=== PATIENT | male | born 1930 | race Caucasian/White ===

== ENCOUNTER 2016-06-28 04:14 | Inpatient (IN) | payer OTHER ==
--- NOTE | ~2016-06-28 | IDS ---
Interim Discharge Summary [facility] [address] [facility] [address] NAME: ALEXANDER LARA : 29 STATUS : ADM IN PAT#: [id number] AGE: 85 ADM/REG DATE : 06/28/16 MR#: [id number] REPORT SERV DATE: 06/30/16 DICTATED BY: AMARILIS MENDOSA DATE: 06/29/16 REPORT STATUS : Draft TRANSCRIBED BY: MODL DATE: 06/29/16 ADMISSION DATE: 06/28/2016 DISCHARGE DATE: The patient arrived to wi at 4:30 p.m. from being in the ED since 2 a.m. if not earlier and was to go to 2 South and went to 7 North. Greater than 40 minutes were spent in critical care time interpreting ABG and stabilizing the patient. OSORIO/VAMSI arilis Mendosa DO / [id number]
--- NOTE | ~2016-06-28 | HP ---
History And Physical [id number] [place]. [address] NAME: ALEXANDER CHIN : 29 STATUS : ADM IN [facility]#: [id number] AGE: 85 ADM/REG DATE : 06/28/16 MR#: [id number] REPORT SERV DATE: 06/28/16 DICTATED BY: DAREN GUERRIER DATE: 06/28/16 REPORT STATUS : Draft TRANSCRIBED BY: MODL DATE: 06/28/16 DATE OF ADMISSION: 06/28/2016 CHIEF COMPLAINT: Severe shortness of breath. HISTORY OF PRESENT ILLNESS: This is an 85-year-old male, who presents to the emergency room at [facility] with the above-mentioned complaint. History is obtained from the patient, his daughter who is at bedside, and reviewing data available on the imageloop system. According to the patient and his daughter, he had been in his usual state of health until last night when he woke up with shortness of breath. He lives in [place] by himself, but has some help coming in a couple times a week to take care of household duties. He has been active and he takes care of himself until this happened. He states, he suddenly woke up very short of breath and since then could not breathe. He finally called EMS and the patient was brought to emergency room here. In the emergency room, initial workup revealed a chest x-ray showing right lower lobe infiltrate suggestive of pneumonia. He also had acute hypoxic respiratory failure requiring noninvasive ventilatory support upon arrival here. He had lactate of 2.7 with leukocytosis as well. Hospitalist Service is asked to admit him for further evaluation and treatment. At the time of my evaluation, he denied any chest pain, palpitations, or orthopnea. He had no cough or sputum production, denied any hemoptysis, night sweats, or weight loss. He has not had any recent falls or loss of consciousness. He has had not checked his temperature at home, but did have some chills. No nausea, vomiting, diarrhea, hematemesis, hematochezia, or hematuria. No other history of recent travel or exposures other than those mentioned above. PAST MEDICAL HISTORY: Significant for history of congestive heart failure, pacemaker placement, diabetes mellitus type 2, and essential hypertension. SOCIAL HISTORY: He has about 64-[id number]-aloi history of smoking in his very young days, but not since. He denies alcohol use or recreational drug use. FAMILY HISTORY: Noncontributory. MEDICATIONS: At home were reviewed by me in the chart today and reordered by me. REVIEW OF SYSTEMS: As in history of present illness. All other systems were reviewed in detail and are quite unremarkable. PHYSICAL EXAMINATION: GENERAL: This is a pleasant 85-year-old, not in any acute distress. HEENT: His head is atraumatic, normocephalic. He is alert, awake, oriented to time, place, History And Physical [address] [address] NAME: ALEXANDER CHIN : 29 STATUS : ADM IN [facility]#: [id number] AGE: 85 ADM/REG DATE : 06/28/16 MR#: [id number] REPORT SERV DATE: 06/28/16 DICTATED BY: DAREN GUERRIER DATE: 06/28/16 REPORT STATUS : Draft TRANSCRIBED BY: VAMSI DATE: 06/28/16 and person. Pupils are equal, reacting to light and accommodating. External ocular muscles are intact. Membranes are moist and pink. Sclerae are nonicteric. NECK: Supple with no jugular venous distention, lymphadenopathy, or thyromegaly. LUNGS: Auscultation of his lungs revealed crackles in the right base along with rales. There were no expiratory wheezes. Trachea appeared to be in the midline. HEART: Auscultation of his heart revealed normal rate and rhythm with no murmurs, rubs, or gallops. ABDOMEN: Soft, nontender. Bowel sounds are present. EXTREMITIES: No cyanosis, clubbing, or edema. NEUROLOGIC: Grossly intact. No focal sensory or motor deficits. Higher functions appeared intact. Gait was not examined. VITAL SIGNS: His temperature was 97.1, pulse 85, respirations 20 a minute, blood pressure was 148/78. LABORATORY DATA: Reviewed on the imageloop system showed a pH of 7.36 on arterial blood gas, pCO2 was 44, PaO2 of 82, and bicarb was 24.2, this was on 100% FiO2 on BiPAP. CMP showed a sodium of 143, potassium 4.3, chloride 105, and CO2 was 28, BUN was 25 with a creatinine of 1.15, and blood glucose was 137. His troponin was 0.03. BNP was 171.2. Lactate was 2.7. CBC showed a white blood cell count of 17,300. Normal hemoglobin, hematocrit, and platelet count. His prothrombin time was 14.9 with an INR of 1.2. His procalcitonin was 0.14. Films of the chest x-ray were reviewed by me on the PACS today and interpreted by me. Per my interpretation, there is normal bony architecture with the pacemaker. Lung woodruff showed right lower lobe infiltrates, consistent with pneumonia. IMPRESSION: 1. Acute hypoxic respiratory failure. 2. Right lower lobe community-acquired pneumonia. 3. Sepsis. 4. Leukocytosis. 5. Hypertension. 6. Congestive heart failure. 7. Pacemaker placement. 8. Diabetes mellitus type 2. PLAN: We will admit Mr. Chin to the Hospitalist Service with telemetry. We will maximize bronchodilator treatments, continue supplemental oxygen therapy, and add mucolytics to his regimen as well. The patient was initially on noninvasive ventilatory support in the ED. Then, titrated down to a Vapotherm and he is doing well. He is awake, alert, and responding very well. We will continue to titrate his FiO2 down as tolerated and follow arterial blood gases. After cultures are drawn, we will start him on empiric IV antibiotics for community- acquired pneumonia. We will also control blood sugars with NovoLog given subcutaneously per sliding scale and check his A1c. We will continue all other home medications and treatments at this time and we will place him on unfractionated heparin for DVT prophylaxis while here. I have discussed the above plans with the patient and his daughter, who was at bedside. Their questions were answered and they are agreeable to the above recommendations. History And Physical [address] [address] NAME: ALEXANDER CHIN : 29 STATUS : ADM IN [facility]#: [id number] AGE: 85 ADM/REG DATE : 06/28/16 MR#: [id number] REPORT SERV DATE: 06/28/16 DICTATED BY: DAREN GUERRIER DATE: 06/28/16 REPORT STATUS : Draft TRANSCRIBED BY: VAMSI DATE: 06/28/16 Hospitalist Service will be following him during his stay. /VAMSI Daren Guerrier M.D. / [id number] CC: Josephine Uriostegui MD
--- NOTE | ~2016-06-28 | CN ---
Consultation Report [facility] [address] [place]. [address] NAME: ILDEFONSO CHIN : 29 STATUS : ADM IN PAT#: [id number] AGE: 85 ADM/REG DATE : 06/28/16 MR#: [id number] REPORT SERV DATE: 06/29/16 DICTATED BY: PANTERA DUMONT DATE: 06/29/16 REPORT STATUS : Draft TRANSCRIBED BY: MODL DATE: 06/29/16 CONSULTATION DATE OF CONSULTATION: 06/29/2016 CHIEF COMPLAINT: Shortness of breath in a patient with persistent pneumonia. HISTORY OF PRESENT ILLNESS: Mr. Ildefonso Chin is very pleasant 85-year-old white male with a past medical history significant for diabetes mellitus, hypertension, and dyslipidemia, who presents to [facility]'s Emergency Room with complaints of worsening shortness of breath of two to three days' duration. It should be noted that Mr. Chin has not been hospitalized recently and has done quite well as an outpatient given his advanced age and comorbidities. Mr. Chin is not currently followed by a computational theory scientist. He does require supplemental oxygen continuously at 2 L. The patient quit smoking many years ago. However, prior to this time, he smoked about four packs of cigarettes a day for a period of nine years. He largely denies symptomatology related to obstructive sleep apnea. He is on a pulmonary regimen of albuterol, which he uses infrequently. He has difficulty quantifying his exercise tolerance as he ambulates primarily with a walker. That being said, he does have some degree of chronic dyspnea and exercise intolerance. Mr. Chin states that approximately three to four weeks ago, he began to notice worsening dyspnea that exceeded his normal level of breathlessness. He did present to a practitioner who provided him with a course of antibiotics. He is unsure of the type and duration of this therapy. That being said, he did not have significant improvement in his breathing. He was then prescribed a second course of antibiotics which again did not provide significant relief. More recently, he had acute worsening of his pulmonary status over the last two or three days to such a degree that he is ultimately presented to [facility]'s Emergency Room. Upon arrival, he was found to be normotensive and afebrile. His oxygenation was 95% on 10 L of supplemental oxygen. Initial blood work revealed a white blood cell count of 17,300. He had initial arterial blood gas at this time, which demonstrated pH 7.36, PaCO2 of 44, PaO2 of 82. He underwent chest imaging which demonstrated a right lower lobe pneumonia. He was started on Rocephin and azithromycin. He was also provided BiPAP and Vapotherm for pulmonary support. Since that time, the patient's pulmonary regimen has been expanded to include steroids, breathing treatments, and a more aggressive antibiotic regimen. The patient continues to have some degree of hypoxemia, and as such, has been referred to the Pulmonary Service for further assessment. Currently, the patient's main pulmonary complaint is shortness of breath. This is worse on exertion and relieved by rest. He does have a productive cough that is producing a moderate amount of thick yellow sputum. He denies any overt wheezing in his chest. He denies any recent episodes of hemoptysis. He denies recurrent or recent pneumonias. He denies any aspiration events. He does confirm some degree of dysphagia and has been tentatively Consultation Report [address] [address] NAME: ILDEFONSO CHIN : 29 STATUS : ADM IN [facility]#: [id number] AGE: 85 ADM/REG DATE : 06/28/16 MR#: [id number] REPORT SERV DATE: 06/29/16 DICTATED BY: PANTERA DUMONT DATE: 06/29/16 REPORT STATUS : Draft TRANSCRIBED BY: VAMSI DATE: 06/29/16 scheduled for an esophageal dilatation sometime in the future. He does carry a formal diagnosis of COPD. The patient does have known arrhythmias, status post pacemaker placement. There is a mention of history of congestive heart failure. He does have known hypertension and dyslipidemia. He currently denies any murmurs, angina, or palpitations. He denies any orthopnea or dependent edema. In regard to constitutional symptoms, the patient has had rigors and two episodes of diarrhea. He currently denies any nausea, vomiting, or dependent edema. PAST MEDICAL HISTORY: 1. Diabetes mellitus. 2. Peripheral neuropathy. 3. Gout. 4. Dyslipidemia. 5. Hypertension. 6. Congestive heart failure. 7. Arrhythmia, status post pacemaker placement. 8. Prostate cancer. PAST SURGICAL HISTORY: 1. Prostatectomy. 2. Cholecystectomy. FAMILY HISTORY: The patient denies family history of lung disease. SOCIAL HISTORY: The patient is . He has one daughter who is currently at bedside. 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 He has likely had excessive exposures to airborne dust and silica. TOBACCO/ALCOHOL: As previously mentioned, the patient quit smoking quite some time ago. That being said, the patient has smoked as much as four packs a day for a period of approximately nine years. Denies any recent alcohol or illicit drug use. MEDICATIONS: 1. Albuterol. 2. Allopurinol 100 mg. 3. Diltiazem 120 mg. 4. Furosemide 40 mg. 5. Gabapentin 100 mg. 6. Hydrocodone 10/325. 7. Insulin. 8. Isosorbide dinitrate 20 mg. 9. Metoprolol 50 mg. Consultation Report [address] [place]. [address] NAME: ILDEFONSO CHIN : 29 STATUS : ADM IN [facility]#: [id number] AGE: 85 ADM/REG DATE : 06/28/16 MR#: [id number] REPORT SERV DATE: 06/29/16 DICTATED BY: PANTERA DUMONT DATE: 06/29/16 REPORT STATUS : Draft TRANSCRIBED BY: VAMSI DATE: 06/29/16 10.Simvastatin 20 mg. 11.Temazepam 30 mg. ALLERGIES: THE PATIENT HAS KNOWN ALLERGIES TO DIAZEPAM. REVIEW OF SYSTEMS: A complete review of systems was performed with pertinent positives and negatives contained within the body of the HPI. PHYSICAL EXAMINATION: VITAL SIGNS: Blood pressure is 138/64, heart rate 71, T-max is 97.9, respiratory rate is 22, and SpO2 is 95% on 5 L nasal cannula. GENERAL: The patient is a pleasant, well-nourished/well-developed male who is not currently exhibiting any signs of acute distress. Skin: Skin with appropriate texture and turgor. No rashes, lesions, or ulcers. Nails are clear without cyanosis or clubbing. HEENT: Head: Skull is normocephalic/atraumatic. Facies symmetric. No masses or lesions. Eyes: Sclera anicteric, conjunctiva pink without exudates. Extra ocular movements intact. Pupils are equal, round, reactive to light. Ears: Auricles and tragus without pain to palpation. Hearing is grossly intact. Nose: Bilateral nasal patency. Sinuses without tenderness upon palpation. Throat: The patient is edentulous. Lips, oral mucosa, tongue, palate, and pharynx pink and moist without lesions. Uvula rises equally on phonation. Tongue midline without deviation. NECK: Neck supple. Trachea midline. No cervical lymphadenopathy appreciated. THORAX/LUNGS: Thorax is symmetric with equal chest rise. Breath sounds audible through entire field. No rales, wheezes, or rhonchi. Pacemaker site appreciated. Diminished breath sounds in the lower lung woodruff. CARDIOVASCULAR: Regular rate and rhythm. No murmurs, rubs, or gallops. Anterior chest without thrills, heaves, or lifts. ABDOMEN: Soft. Non-distended, non-tender. Active bowel sounds in all four quadrants. No hepatosplenomegaly noted. PERIPHERAL VASCULAR: No edema. No varicosities, stasis changes, open sores, ulcerations, or phlebitis. 2+ pulses in radial and dorsalis pedis. MUSCULOSKELETAL: Full AROM and PROM in all joints. No evidence of erythema, deformity, or crepitus. NEUROLOGIC: CN II - XII grossly intact. Good muscle bulk and tone bilaterally. Strength 5/5 throughout. PSYCHIATRIC: Patient demonstrates good judgment and insight. Pt is A&O x 3. ACCESSORY DATA: Reveals a magnesium of 1.8. Phosphorus is 2.4. Procalcitonin is 13.98. Arterial blood gas on 0.55 FiO2 reveals pH of 7.748, PaCO2 is 45, PaO2 of 124, and a bicarb of 32.8. BNP is 713.7. Blood cultures are negative to date. Chest x-ray reveals bilateral infiltrates. There is an echocardiogram pending. Consultation Report [address] [address] NAME: ILDEFONSO CHIN : 29 STATUS : ADM IN PAT#: [id number] AGE: 85 ADM/REG DATE : 06/28/16 MR#: [id number] REPORT SERV DATE: 06/29/16 DICTATED BY: PANTERA DUMONT DATE: 06/29/16 REPORT STATUS : Draft TRANSCRIBED BY: VAMSI DATE: 06/29/16 IMPRESSION: 1. Acute on chronic hypoxemic respiratory failure. 2. Non resolving pneumonia. 3. Clinical chronic obstructive pulmonary disease. 4. Congestive heart failure. PLAN: 1. At this time, we would consider the patient's acute on chronic hypoxemic respiratory failure. It is likely secondary to his current pneumonia and to some degree. His underlying obstructive lung disease. The patient has improved in this regard and is currently only requiring high-flow nasal oxygen. We will attempt to wean this as appropriate. 2. In regard to the patient's nonresolving pneumonia, his antibiotics have been increased to vancomycin and Zosyn. We will obtain a sputum for better guidance and antibiotic therapy. We will recheck a procalcitonin one or two days as well as serial chest x- rays. The patient does have some issues with swallowing, and as such, we will obtain a bedside swallow evaluation. 3. In regard to the patient's clinical COPD, we will transition him from IV steroids to oral prednisone. We will ensure that he is on a full armamentarium of nebulized medications and provide him with therapies to help improve pulmonary toilet. 4. In regard to the patient's possible congestive heart failure. There is an echocardiogram pending. We will follow with further recommendations pending those results. The aforementioned impression and plan has been discussed with Dr. Pepe who will follow further recommendations. We thank you for this consult and look for to participating in the care of Ildefonso Duffysanford Chin. GBS/MODL Pantera Dumont PA-C / [id number] CC: DO LYNN Alicia FRANCES
--- NOTE | ~2016-06-28 | DS ---
Discharge Summary [id number] [place]. [address] NAME: ALEXANDER LARA : 29 STATUS : DIS IN PAT#: [id number] AGE: 85 ADM/REG DATE : 06/28/16 MR#: [id number] REPORT SERV DATE: 07/05/16 DICTATED BY: INDRA MORA DATE: 07/04/16 REPORT STATUS : Draft TRANSCRIBED BY: VAMSI DATE: 07/04/16 ADMISSION DATE: 06/28/2016 DISCHARGE DATE: 07/04/2016 DIAGNOSES: 1. Acute on chronic hypoxic respiratory failure. 2. Right lower lobe pneumonia. 3. Sepsis, resolved. 4. Type 2 diabetes. 5. Hypertension. 6. History of chronic obstructive pulmonary disease. FOLLOWUP: The patient should follow up with the primary care physician in one to two weeks. Also, the patient should follow up with Dr. Pepe, resident care aide in four to six weeks. PLAQUE MAKER: Pulmonary, Dr. Pepe. HOSPITALIST: Dr. Daren Martinez, Dr. Christoph Leon, and Dr. Mora. DISCHARGE MEDICATIONS: Allopurinol 100 mg p.o. daily, Lasix 40 mg p.o. daily, diltiazem 120 mg p.o. daily, Flonase one spray in each nostril b.i.d. for seven days, Neurontin 100 mg p.o. q.h.s., Levemir 20 units subcutaneous q.h.s. p.r.n. blood glucose greater than 130 per home dose, isosorbide dinitrate 20 mg p.o. t.i.d., metoprolol succinate 75 mg p.o. b.i.d., Zocor 20 mg p.o. q.h.s., albuterol MDI two puffs inhaled every four hours p.r.n., albuterol neb scheduled three times a day, [place] 10/325 one tab p.o. b.i.d. p.r.n. per home dose, 70/30 Novolin insulin 20 units subcu daily per home dose, Levaquin 750 mg p.o. daily for three days, Symbicort 160/4.5 two puffs inhaled b.i.d., Spiriva inhaled daily. HOSPITAL COURSE: Please see H and P from Dr. Martinez and interim summary from Dr. Leon for further details. This is an 85 years old male with a past medical history of COPD, on 2 L of home O2, who presented with shortness of breath, dyspnea on exertion, admitted to the Hospitalist Service for pneumonia, found to have right lower lobe pneumonia and acute on chronic worsening hypoxic respiratory failure with sepsis. He was initially admitted to Dr. Christoph Leon. The patient was placed on IV vancomycin and Zosyn. Also, seen by Pulmonary, Dr. Pepe, and GALLO Hagan. The patient's O2 requirement decreased down to his home dose of 2 L. Also, his chest x-ray showed much improvement with his antibiotics. The patient did have one blood culture out of two to grow Staph hominis; however, repeat blood cultures were no growth to date. The patient clinically improved with treatment also with bronchodilators. Also, it was recommended for the patient to be discharged to inpatient rehab. At first, the patient consented for [facility], then he changed his mind to consider the bridge, and then the day prior to discharge, the patient states that he discussed with his daughter and they both would prefer for the patient to be returned to home instead of rehab. He did have clinical improvement of his debility. However, it is still recommended for the patient to be cared for by family for the next few days. While at home, he will continue with home physical therapy and nursing with Home Health, and the patient refused inpatient rehab at discharge. Overall clinical status improved and the Discharge Summary [address] [address] NAME: ALEXANDER LARA MAURICE : 29 STATUS : DIS IN [facility]#: [id number] AGE: 85 ADM/REG DATE : 06/28/16 MR#: [id number] REPORT SERV DATE: 07/05/16 DICTATED BY: INDRA MORA DATE: 07/04/16 REPORT STATUS : Draft TRANSCRIBED BY: VAMSI DATE: 07/04/16 patient states that he is at his baseline functional capacity at discharge. He was discharged to home in stable condition to follow up as an outpatient. CAIO/VAMSI Indra Mora M.D. / [id number] CC: Deirdre Emerson M.D. Hisham F. Qutob, MD
[2016-06-28 02:19] LABS: ALLENS TEST Pos; BE (BASE EXCESS) -1.5 MEQ/L (0 +/- 2.5); BIPAP 14/6 cm.H2O; CARBOXYHEMOGLOBIN 1.5 % (0-3); HCO3 (ACTUAL BICARBONATE) 24.2 MEQ/L (23-27); HEMOBLOGIN CONTENT 14.9 G/DL (14-18); INSTRUMENT SERIAL # 8087; METHEMOGLOBIN 0.3 % (0-3); O2 CONTENT 19.7 VOL% (18-24); PCO2 (CO2 TENSION) 44 MMHG (35-45); PO2 (O2 TENSION) 82 MMHG (79-93); SAMPLE Arterial; pH 7.36 (7.37-7.43)
[2016-06-28 02:48] LABS: BASOPHILS 0.2 %; BASOPHILS ABSOLUTE 0.04 10/3/uL (0.0-0.16); EOSINOPHILS 0.8 %; EOSINOPHILS ABSOLUTE 0.13 10/3/uL (0.0-0.53); HEMATOCRIT 44.3 % (40.0-51.0); HEMOGLOBIN 14.5 g/dL (13.6-17.8); IMMATURE GRANULOCYTES 0.3 %; IMMATURE GRANULOCYTES ABSOLUTE 0.06 10/3/uL (0.0-0.11); LYMPHOCYTES ABSOLUTE 1.91 10/3/uL (0.67-4.30); MEAN CORPUS HGB CONC 32.7 g/dL (32.0-36.0); MEAN CORPUSCULAR HEMOGLOB 31.8 pg (26.0-34.0); MEAN CORPUSCULAR VOLUME 97.1 fL (80-100); MEAN PLATELET VOLUME 10.2 fL (9.2-13.0); MONOCYTES 6.9 %; MONOCYTES ABSOLUTE 1.19 10/3/uL (0.21-1.20); NEUTROPHILS 80.8 %; PLATELET COUNT 200 10/3/uL (150-400); RBC DISTRIBUTION WIDTH 13.7 % (12.0-16.0); RED CELL COUNT 4.56 10/6/uL (4.7-6.1); WHITE BLOOD CELLS 17.3 10/3/uL (4.5-10.5)
[2016-06-28 02:49] LABS: MANUAL DIFF NO %
[2016-06-28 03:05] LABS: LACTATE 2.7 MMOL/L (0.3-2.4)
[2016-06-28 03:10] LABS: ALBUMIN 3.1 G/DL (3.5-5.0); ALKALINE PHOSPHATASE 84 U/L (45-117); BUN (BLOOD UREA NITROGEN) 25 MG/DL (6-23); CHEST PAIN PROFILE TAT 0 Hrs 26 Mins; CHLORIDE, SERUM 105 MMOL/L (96-112); CO2 (CARBON DIOXIDE) 28 MMOL/L (24-34); CREATININE 1.15 MG/DL (0.70-1.30); DIRECT BILIRUBIN 0.1 MG/DL (0.0-0.4); GFR AFRICAN AMERICAN 66 ML/MIN (>=60); GFR NON AFRICAN AMERICAN 57 ML/MIN (>=60); GLUCOSE, SERUM 137 MG/DL (60-99); INDIRECT BILIRUBIN(NOT ORDER) 0.3 MG/DL (0.1-0.9); POTASSIUM, SERUM 4.3 MMOL/L (3.5-5.3); SGOT(AST) 15 U/L (5-40); SGPT(ALT) 16 U/L (5-65); SODIUM, SERUM 143 MMOL/L (135-148); TOTAL BILIRUBIN 0.4 MG/DL (0-1.2); TOTAL PROTEIN 6.7 G/DL (6.0-8.5); TROPONIN I 0.03 NG/ML (<0.05)
[2016-06-28 03:50] LABS: PROCALCITONIN 0.14 ng/mL (<0.5)
[2016-06-28 04:33] LABS: INTERNATIONAL NORMAL RATI 1.2 UNITS (-); PROTIME (NOT ORD) 14.9 SEC (12.0-14.5)
[2016-06-28 04:34] LABS: PARTIAL THROMBO TIME 28.5 SEC (22.5-37.2)
[2016-06-28 07:34] LABS: PHOSPHORUS, SERUM 4.9 MG/DL (2.5-4.5)
[2016-06-28] MEDS ORDERED: TOPXL50 PO (10:55)
[2016-06-28] MEDS ORDERED: CARD120 PO (10:55)
[2016-06-28] MEDS ORDERED: IRON OTC PO (10:56)
[2016-06-28] MEDS ORDERED: ZOCOR20 PO (10:56)
[2016-06-28] MEDS ORDERED: L40 PO (10:56)
[2016-06-28] MEDS ORDERED: ISORDIL20 PO (10:56)
[2016-06-28] MEDS ORDERED: Z100 PO (10:56)
[2016-06-28] MEDS ORDERED: NEUR100 PO (10:56)
[2016-06-28] MEDS ORDERED: INSNOV7030 SC (10:57)
[2016-06-28] MEDS ORDERED: RESTORIL30 MG PO (10:57)
[2016-06-28] MEDS ORDERED: NORCO1 TAB PO (10:57)
[2016-06-28] MEDS ORDERED: PROAIR HFA INH (10:58)
[2016-06-28] MEDS ORDERED: LEVEMIR SC (11:00)
[2016-06-28] MEDS ORDERED: ALBUTEROL0.083 % INH (11:01)
[2016-06-28 15:37] LABS: BASOPHILS 0.2 %; BASOPHILS ABSOLUTE 0.02 10/3/uL (0.0-0.16); EOSINOPHILS 0.1 %; EOSINOPHILS ABSOLUTE 0.01 10/3/uL (0.0-0.53); ER CBC TAT 0 Hrs 11 Mins; IMMATURE GRANULOCYTES 0.2 %; IMMATURE GRANULOCYTES ABSOLUTE 0.02 10/3/uL (0.0-0.11); LYMPHOCYTES 9.2 %; LYMPHOCYTES ABSOLUTE 1.17 10/3/uL (0.67-4.30); MANUAL DIFF NO %; MEAN CORPUS HGB CONC 32.5 g/dL (32.0-36.0); MEAN CORPUSCULAR HEMOGLOB 31.3 pg (26.0-34.0); MEAN CORPUSCULAR VOLUME 96.2 fL (80-100); MEAN PLATELET VOLUME 9.7 fL (9.2-13.0); MONOCYTES 8.2 %; MONOCYTES ABSOLUTE 1.05 10/3/uL (0.21-1.20); NEUTROPHILS 82.1 %; PLATELET COUNT 141 10/3/uL (150-400); RBC DISTRIBUTION WIDTH 13.8 % (12.0-16.0); RED CELL COUNT 4.16 10/6/uL (4.7-6.1); WHITE BLOOD CELLS 12.8 10/3/uL (4.5-10.5)
[2016-06-28 15:53] LABS: LACTATE 2.1 MMOL/L (0.3-2.4)
[2016-06-28 16:01] LABS: CALCIUM, SERUM 8.9 MG/DL (8.5-10.4); CHLORIDE, SERUM 102 MMOL/L (96-112); CO2 (CARBON DIOXIDE) 31 MMOL/L (24-34); CREATININE 0.85 MG/DL (0.70-1.30); GFR AFRICAN AMERICAN 91 ML/MIN (>=60); GFR NON AFRICAN AMERICAN 79 ML/MIN (>=60); POTASSIUM, SERUM 4.5 MMOL/L (3.5-5.3); SODIUM, SERUM 141 MMOL/L (135-148)
[2016-06-28 16:02] LABS: BUN (BLOOD UREA NITROGEN) 19 MG/DL (6-23); GLUCOSE, SERUM 182 MG/DL (60-99); PHOSPHORUS, SERUM 2.4 MG/DL (2.5-4.5); ULTRASENSITIVE TSH 0.406 MCIU/ML (0.358-3.740)
[2016-06-28 16:11] LABS: PROCALCITONIN 13.98 ng/mL (<0.5)
[2016-06-28 17:47] LABS: ALLENS TEST Pos; BE (BASE EXCESS) 3.6 MEQ/L (0 +/- 2.5); CARBOXYHEMOGLOBIN 0.7 % (0-3); DEVICE VAPOTHERM 25L; HCO3 (ACTUAL BICARBONATE) 27.7 MEQ/L (23-27); HEMOBLOGIN CONTENT 13.6 G/DL (14-18); INSTRUMENT SERIAL # 8083; METHEMOGLOBIN 0.2 % (0-3); O2 CONTENT 17.7 VOL% (18-24); OPERATOR ID 14335; PCO2 (CO2 TENSION) 40 MMHG (35-45); PO2 (O2 TENSION) 63 MMHG (79-93); SAMPLE Arterial; pH 7.46 (7.37-7.43)
[2016-06-29 06:10] LABS: BE (BASE EXCESS) 8.3 MEQ/L (0 +/- 2.5); BIPAP 13/6 cm.H2O; CARBOXYHEMOGLOBIN 0.7 % (0-3); HCO3 (ACTUAL BICARBONATE) 32.8 MEQ/L (23-27); INSTRUMENT SERIAL # 8083; O2 CONTENT 18.1 VOL% (18-24); PCO2 (CO2 TENSION) 45 MMHG (35-45); PO2 (O2 TENSION) 124 MMHG (79-93); SAMPLE Arterial; pH 7.48 (7.37-7.43)
[2016-06-29 06:11] LABS: ALLENS TEST Pos
[2016-06-30 06:15] LABS: BASOPHILS 0 %; EOSINOPHILS 0 %; HEMATOCRIT 36.5 % (40.0-51.0); HEMOGLOBIN 12.2 g/dL (13.6-17.8); IMMATURE GRANULOCYTES 0.3 %; IMMATURE GRANULOCYTES ABSOLUTE 0.02 10/3/uL (0.0-0.11); LYMPHOCYTES 10.8 %; LYMPHOCYTES ABSOLUTE 0.78 10/3/uL (0.67-4.30); MANUAL DIFF NO %; MEAN CORPUS HGB CONC 33.4 g/dL (32.0-36.0); MEAN CORPUSCULAR HEMOGLOB 31.4 pg (26.0-34.0); MEAN CORPUSCULAR VOLUME 94.1 fL (80-100); MEAN PLATELET VOLUME 10.1 fL (9.2-13.0); MONOCYTES 1.8 %; MONOCYTES ABSOLUTE 0.13 10/3/uL (0.21-1.20); NEUTROPHILS 87.1 %; PLATELET COUNT 148 10/3/uL (150-400); RBC DISTRIBUTION WIDTH 13.7 % (12.0-16.0); RED CELL COUNT 3.88 10/6/uL (4.7-6.1); WHITE BLOOD CELLS 7.2 10/3/uL (4.5-10.5)
[2016-06-30 06:28] LABS: CALCIUM, SERUM 8.6 MG/DL (8.5-10.4); CHLORIDE, SERUM 96 MMOL/L (96-112); CO2 (CARBON DIOXIDE) 33 MMOL/L (24-34); CREATININE 1.13 MG/DL (0.70-1.30); GFR AFRICAN AMERICAN 68 ML/MIN (>=60); GFR NON AFRICAN AMERICAN 59 ML/MIN (>=60); SODIUM, SERUM 140 MMOL/L (135-148)
[2016-06-30 06:34] LABS: BUN (BLOOD UREA NITROGEN) 25 MG/DL (6-23); GLUCOSE, SERUM 317 MG/DL (60-99); PHOSPHORUS, SERUM 3.7 MG/DL (2.5-4.5); POTASSIUM, SERUM 3.2 MMOL/L (3.5-5.3)
[2016-06-30 08:03] LABS: PROCALCITONIN 9.05 ng/mL (<0.5)
[2016-07-01 06:51] LABS: BASOPHILS 0 %; EOSINOPHILS 0 %; HEMATOCRIT 34.2 % (40.0-51.0); HEMOGLOBIN 11.5 g/dL (13.6-17.8); IMMATURE GRANULOCYTES 0.4 %; IMMATURE GRANULOCYTES ABSOLUTE 0.05 10/3/uL (0.0-0.11); LYMPHOCYTES 4.8 %; LYMPHOCYTES ABSOLUTE 0.58 10/3/uL (0.67-4.30); MANUAL DIFF NO %; MEAN CORPUS HGB CONC 33.6 g/dL (32.0-36.0); MEAN CORPUSCULAR HEMOGLOB 31.8 pg (26.0-34.0); MEAN CORPUSCULAR VOLUME 94.5 fL (80-100); MONOCYTES 6.2 %; MONOCYTES ABSOLUTE 0.75 10/3/uL (0.21-1.20); NEUTROPHILS 88.6 %; NEUTROPHILS ABSOLUTE 10.66 10/3/uL (2.02-8.40); PLATELET COUNT 155 10/3/uL (150-400); RBC DISTRIBUTION WIDTH 13.5 % (12.0-16.0); RED CELL COUNT 3.62 10/6/uL (4.7-6.1)
[2016-07-01 07:10] LABS: CALCIUM, SERUM 8.3 MG/DL (8.5-10.4); CHLORIDE, SERUM 100 MMOL/L (96-112); CREATININE 1.11 MG/DL (0.70-1.30); GFR AFRICAN AMERICAN 69 ML/MIN (>=60); GFR NON AFRICAN AMERICAN 60 ML/MIN (>=60); GLUCOSE, SERUM 267 MG/DL (60-99); POTASSIUM, SERUM 3.9 MMOL/L (3.5-5.3); SGOT(AST) 35 U/L (5-40); SGPT(ALT) 35 U/L (5-65); SODIUM, SERUM 140 MMOL/L (135-148); TOTAL BILIRUBIN 0.3 MG/DL (0-1.2); TOTAL PROTEIN 5.6 G/DL (6.0-8.5)
[2016-07-01 07:18] LABS: A/G RATIO 0.8 (0.7-1.9); ALBUMIN 2.4 G/DL (3.5-5.0); ALKALINE PHOSPHATASE 54 U/L (45-117); BUN (BLOOD UREA NITROGEN) 33 MG/DL (6-23); CO2 (CARBON DIOXIDE) 28 MMOL/L (24-34); GLOBULIN 3.2 G/DL (2.5-4.1)
[2016-07-01 08:10] LABS: PROCALCITONIN 5.08 ng/mL (<0.5)
[2016-07-02 06:51] LABS: BASOPHILS 0.1 %; BASOPHILS ABSOLUTE 0.01 10/3/uL (0.0-0.16); EOSINOPHILS 0 %; IMMATURE GRANULOCYTES 0.9 %; IMMATURE GRANULOCYTES ABSOLUTE 0.08 10/3/uL (0.0-0.11); LYMPHOCYTES 9.2 %; LYMPHOCYTES ABSOLUTE 0.86 10/3/uL (0.67-4.30); MEAN CORPUS HGB CONC 33.3 g/dL (32.0-36.0); MEAN CORPUSCULAR HEMOGLOB 30.6 pg (26.0-34.0); MEAN CORPUSCULAR VOLUME 91.7 fL (80-100); MEAN PLATELET VOLUME 9.8 fL (9.2-13.0); MONOCYTES 10.1 %; MONOCYTES ABSOLUTE 0.94 10/3/uL (0.21-1.20); NEUTROPHILS 79.7 %; NEUTROPHILS ABSOLUTE 7.45 10/3/uL (2.02-8.40); PLATELET COUNT 158 10/3/uL (150-400); RBC DISTRIBUTION WIDTH 13.7 % (12.0-16.0); WHITE BLOOD CELLS 9.3 10/3/uL (4.5-10.5)
[2016-07-02 06:55] LABS: MANUAL DIFF NO %
[2016-07-02 07:04] LABS: BUN (BLOOD UREA NITROGEN) 30 MG/DL (6-23); CALCIUM, SERUM 8.5 MG/DL (8.5-10.4); CHLORIDE, SERUM 102 MMOL/L (96-112); CO2 (CARBON DIOXIDE) 29 MMOL/L (24-34); CREATININE 1.03 MG/DL (0.70-1.30); GFR AFRICAN AMERICAN 76 ML/MIN (>=60); GFR NON AFRICAN AMERICAN 65 ML/MIN (>=60); GLUCOSE, SERUM 238 MG/DL (60-99); PHOSPHORUS, SERUM 2.8 MG/DL (2.5-4.5); SODIUM, SERUM 138 MMOL/L (135-148)
[2016-07-04] MEDS ORDERED: SPIRIVA (12:03)
[2016-07-04] MEDS ORDERED: LEVAQUIN750 MG PO (12:03)
[2016-07-04] MEDS ORDERED: SYMBICORT 160/41 INH INH (12:05)
[2016-07-04] MEDS ORDERED: FLONASE NAS (12:08)
== END 2016-07-04 13:30 | disposition home health service (06) | DRG 871 ==
LOC: ER 04:14 → 2SO 05:56 → ER/OF 08:07 → 7NO 14:33
PROVIDERS: Hospitalist; Internal Medicine; Physician Assistant Medical; Specialist
DX: A41.9 Sepsis, unspecified organism (principal); J18.1 Lobar pneumonia, unspecified organism; J96.21 Acute and chronic respiratory failure with hypoxia; I11.0 Hypertensive heart disease with heart failure; I50.9 Heart failure, unspecified; J44.0 Chronic obstructive pulmonary disease with (acute) lower respiratory infection; E11.9 Type 2 diabetes mellitus without complications; Z95.0 Presence of cardiac pacemaker; Z85.46 Personal history of malignant neoplasm of prostate; Z79.4 Long term (current) use of insulin; R65.20 Severe sepsis without septic shock; Z87.891 Personal history of nicotine dependence
CPT/HCPCS: 36600; 71010; 71020; 80048; 80053; 80076; 82805; 82962; 83605; 83735; 83880; 84100; 84132; 84145; 84443; 84484; 85025; 85610; 85730; 87040; 87070; 87150; 87205; 87449; 87493; 87493-59; 87641; 92610-GN; 93005; 94640; 94660; 94667; 94668; 96365; 96375; 97161-GP; 97165-GO; 99291; A9270-GY; C8929; J0360; J0456; J1170; J2543; J2930; J3370; J3486; Q9957

== ENCOUNTER 2016-07-06 02:13 | Inpatient (IN) | payer OTHER ==
--- NOTE | ~2016-07-06 | HP ---
History And Physical [id number] [place]. [address] NAME: ALEXANDER LARA : 28 STATUS : ADM IN [facility]#: [id number] AGE: 85 ADM/REG DATE : 07/06/16 MR#: [id number] REPORT SERV DATE: 07/06/16 DICTATED BY: KEON GUERIN DATE: 07/06/16 REPORT STATUS : Draft TRANSCRIBED BY: MODL DATE: 07/06/16 DATE OF ADMISSION: 07/06/2016 CHIEF COMPLAINT: Shortness of breath, cough, and fever. HISTORY OF PRESENT ILLNESS: This is an 85-year-old gentleman, who was actually just discharged from the hospital just two days ago, presenting with fever, cough, and shortness of breath. The patient was here admitted into the hospital from 06/28/2016 through 07/04/2016. The patient was treated for right lower lobe pneumonia and acute on chronic hypoxic respiratory failure. The patient is normally dependent on 2 L of oxygen at home, and at the time of discharge the patient was back on 2 L. The patient's daughter is an RN and she agrees that the patient looked ready for discharge home. The patient did well the first day, he got back. Then on the second day, the patient started developing fevers with chills, cough, and shortness of breath. The patient was thus brought back to the ER for further evaluation and care. In the ER, the patient was found to be afebrile and hemodynamically stable. The patient however was hypoxic and required Vapotherm at 100% FiO2 to maintain adequate oxygen saturations. Initial lab evaluation revealed a white blood cell count of 20.9 with 14% bands where as just two days ago his white blood cell count was completely normal with normal diff. Chest x-ray showed a left lower lobe pneumonia which is a completely new finding compared to his most recent chest x-ray performed on 07/01/2016 which showed resolution of pneumonias, and prior to that the patient had very obvious right-sided pneumonia. Given the above findings Internal Medicine consultation was requested for admission of the patient for further evaluation and care. REVIEW OF SYSTEMS: The patient had fevers, chills, and cough at home. Otherwise, 14-point review of systems reviewed and negative other than mentioned above. MEDICATIONS: The list is still pending at this time. ALLERGIES: VALIUM. FOR PAST MEDICAL HISTORY, SURGICAL HISTORY, FAMILY HISTORY, AND SOCIAL HISTORY, PLEASE REFER TO H AND P BY DR. GUERRIER. THIS IS AN INTERVAL H AND P THE PATIENT WAS JUST RECENTLY CARED FOR BY OUR SERVICE. PHYSICAL EXAMINATION: VITAL SIGNS: Temperature 97.3, blood pressure 141/66, pulse 67, respiratory rate is 18, saturating greater than 95% on Vapotherm at 40 L/minute at 80% FiO2. NEUROLOGIC: The patient is alert and oriented x3 with no focal neurologic deficits. GENERAL: The patient is awake, does not appear to be in acute distress, and he is cooperative. History And Physical [address] [address] NAME: ALEXANDER LARA : 28 STATUS : ADM IN [facility]#: [id number] AGE: 85 ADM/REG DATE : 07/06/16 MR#: [id number] REPORT SERV DATE: 07/06/16 DICTATED BY: KEON GUERIN DATE: 07/06/16 REPORT STATUS : Draft TRANSCRIBED BY: VAMSI DATE: 07/06/16 NECK: No JVD. No lymphadenopathy. Normal thyroid. CHEST: No midline sternotomy scar, and no tenderness to palpation. LUNGS: The patient has diffuse wheezes across all lung woodruff. I really do not appreciate worse breath sounds on the left compared to the right. Otherwise, the patient is on Vapotherm and he is tolerating it well. CARDIOVASCULAR: The patient has regular rate and rhythm with no murmurs, rubs, or gallops, and PMI is nondisplaced. ABDOMEN: Soft and nontender, with active bowel sounds and no organomegaly. EXTREMITIES: No edema. Normal distal pulses. No calf tenderness. SKIN: Clean, dry, warm, and intact. LABORATORY DATA: Sodium is 140, potassium 4.6, chloride 103, BUN 43, creatinine 1.23, glucose 144, and calcium 8.6. White blood cell count is 20.9, hemoglobin 13.3, platelets 211, and INR is 1.1. The patient had 14% bands. Troponin was 0.02. BNP was 136.4. Lactate was 1.4. Procalcitonin level was 0.58. ABG; pH was 7.37, pCO2 of 48, PO2 of 92.1, and oxygen saturation of 97.3% on 100% FiO2. Chest x-ray is personally interpreted and it shows left lower lobe pneumonia. ASSESSMENT: This is an 85-year-old gentleman with history of chronic obstructive pulmonary disease, hypertension, diabetes, who was just recently released from the hospital after he was treated for a right lower lobe pneumonia presenting now with left lower lobe pneumonia. 1. Left lower lobe pneumonia, health care-associated pneumonia. 2. Acute on chronic hypoxic respiratory failure, now dependent on Vapotherm. At baseline, he uses 2 L per nasal cannula. 3. Hypertension. 4. Diabetes type 2. 5. Chronic obstructive pulmonary disease with exacerbation. PLAN: My plan is to admit the patient under telemetry monitoring. The patient will be continued on oxygen support via Vapotherm and bronchodilator therapy scheduled. The patient will be started on empiric antibiotic therapy to cover HCAP as well as atypical pathogens. I will go ahead and complete infectious workup with blood cultures, sputum cultures, procalcitonin level, urinary antigens for strep and Legionella. For the COPD, I will also add steroids. Otherwise, for the rest of stable past medical conditions, including hypertension and diabetes, I will continue home medications when the home medication list becomes available. Standard DVT prophylaxis. The patient is full code at this time. Ele/VAMSI Keon S History And Physical [address] [address] NAME: ALEXANDER LARA : 28 STATUS : ADM IN [facility]#: [id number] AGE: 85 ADM/REG DATE : 07/06/16 MR#: [id number] REPORT SERV DATE: 07/06/16 DICTATED BY: KEON GUERIN DATE: 07/06/16 REPORT STATUS : Draft TRANSCRIBED BY: MODAgustin DATE: 07/06/16 MD Clay / [id number] CC: MD Analia Hess M.D. Brenda Sowter, M.D.
--- NOTE | ~2016-07-06 | EGD ---
EGD REPORT [facility] [address] [address] NAME: ILDEFONSO CHIN : 28 STATUS : ADM IN PAT#: [id number] AGE: 85 ADM/REG DATE : 07/06/16 MR#: [id number] REPORT SERV DATE: 07/08/16 DICTATED BY: DARRELL JARQUIN DATE: 07/08/16 REPORT STATUS : Draft [facility]ANS[facility]: [facility] DATE: 07/08/16 [facility] Patient Name: Ildefonso Chin Date of : 1930 Attending MD: DARRELL JARQUIN MD Procedure Date No Time: 07/08/2016 Procedure: Upper GI endoscopy Indications: Epigastric abdominal pain, Dysphagia Referring MD: KATARINA BAILEY Medicines: Propofol per Anesthesia Complications: No immediate complications. Procedure: Pre-Anesthesia Assessment: - ASA Grade Assessment: IV - A patient with severe systemic disease that is a constant threat to life. After obtaining informed consent, the endoscope was passed under direct vision. Throughout the procedure, the patient's blood pressure, pulse, and oxygen saturations were monitored continuously. The GIF [id number] was introduced through the mouth, and advanced to the third part of duodenum. The upper GI endoscopy was accomplished without difficulty. The patient tolerated the procedure well. Findings: Non-severe esophagitis with no bleeding was found in the entire esophagus. A benign-appearing, intrinsic mild stenosis was found in the upper third of the esophagus and was traversed. A guidewire was placed and the scope was withdrawn. Dilation was performed with a Savary dilator with mild resistance at 60 Fr. The esophagus looked satisfactory post dilation A benign-appearing, intrinsic mild stenosis was found in the lower third of the esophagus and was traversed. A guidewire was placed and the scope was withdrawn. Dilation was performed with a Savary dilator with mild resistance at 60 Fr. The esophagus looked satisfactory post dilation A small hiatus hernia was present. Seen on retroflexion, done prior to dilation Diffuse moderate inflammation characterized by adherent blood, congestion (edema), erosions and erythema was found in the entire examined stomach. Biopsies were taken with a cold forceps for Helicobacter pylori testing. Localized mild inflammation characterized by congestion (edema) and erythema was found in the duodenal bulb. Biopsies were taken with a cold forceps for evaluation of celiac disease. And giardia, whipple's disease, and enteritis The 2nd part of the duodenum and 3rd part of the duodenum were normal. EGD REPORT [address] [place]. [address] NAME: ILDEFONSO CHIN : 28 STATUS : [facility]M [facility]#: [id number] AGE: 85 ADM/REG DATE : 07/06/16 MR#: [id number] REPORT SERV DATE: 07/08/16 DICTATED BY: DARRELL JARQUIN DATE: 07/08/16 REPORT STATUS : Draft TRANSCRIBED BY: [email or web address] DATE: 07/08/16 Biopsies were taken with a cold forceps for evaluation of celiac disease. And giardia, whipple's disease, and enteritis Impression: - Non-severe reflux esophagitis. - Benign-appearing esophageal stricture. Dilated. - Benign-appearing esophageal stricture. Dilated. - Hiatus hernia. - Gastritis. Biopsied. - Duodenitis. Biopsied. - Normal 2nd part of the duodenum and 3rd part of the duodenum. Biopsied. Recommendation: - Clear liquid diet for 2 days then Full liquid diet for 1 day then Resume previous diet. - Await pathology results. - Continue present medications. - Return patient to hospital [facility] for ongoing care. Procedure Code(s): --- Professional --- 33471, Esophagogastroduodenoscopy, flexible, transoral; with insertion of guide wire followed by passage of dilator(s) through esophagus over guide wire 52628, Esophagogastroduodenoscopy, flexible, transoral; with biopsy, single or multiple Diagnosis Code(s): --- Professional --- K21.0, Gastro-esophageal reflux disease with esophagitis K22.2, Esophageal obstruction K44.9, Diaphragmatic hernia without obstruction or gangrene K29.70, Gastritis, unspecified, without bleeding K29.80, Duodenitis without bleeding R10.13, Epigastric pain R13.10, Dysphagia, unspecified CPT copyright 2013 [employer]. All rights reserved. The codes documented in this report are preliminary and upon director digital catalogue review may be revised to meet current compliance requirements. Darrell Jarquin MD DARRELL JARQUIN MD 07/08/2016 2:58 PM This report has been signed electronically. EGD REPORT [facility] [address] [address] NAME: ILDEFONSO CHIN : 28 STATUS : [facility]#: [id number] AGE: 85 ADM/REG DATE : 07/06/16 MR#: [id number] REPORT SERV DATE: 07/08/16 DICTATED BY: DARRELL JARQUIN DATE: 07/08/16 REPORT STATUS : Draft TRANSCRIBED BY: [email or web address] DATE: 07/08/16 Number of Addenda: 0 Note Initiated On: 07/08/2016 2:16 PM Scope Withdrawal Time 0 hours 0 minutes 0 seconds [address] [address]
--- NOTE | ~2016-07-06 | DS ---
Discharge Summary [facility] [address] [place]. [address] NAME: ALEXANDER LARA : 28 STATUS : DIS IN PAT#: [id number] AGE: 85 ADM/REG DATE : 07/06/16 MR#: [id number] REPORT SERV DATE: 07/14/16 DICTATED BY: MADELINE OSUNA DATE: 07/13/16 REPORT STATUS : Draft TRANSCRIBED BY: MODL DATE: 07/13/16 ADMISSION DATE: 07/06/2016 DISCHARGE DATE: 07/13/2016 DIAGNOSES OF DISCHARGE: 1. Hospital-acquired pneumonia, resolved. 2. Acute on chronic respiratory failure, resolved. 3. Dysphagia with a history of esophageal stricture, status post EGD dilation performed by Dr. Gabe Srinivasan on 07/08/2016. 4. Diabetes type 2. 5. Hypertension. 6. Chronic obstructive pulmonary disease exacerbation. CONSULTANTS ON THE CASE: Pantera Hagan, Pulmonary, as well as Dr. Srinivasan with GI. PROCEDURE DONE DURING HIS HOSPITALIZATION: Include, 1. An EGD performed on 07/08/2016 showing a non-severe reflux esophagitis and benign appearing esophageal stricture that has been dilated, gastritis, and duodenitis. 2. Other tests done during this hospitalization would include a CT of chest without contrast on 07/07/2016 showing severe COPD, but consolidation of the posterior left lung base. No masses or adenopathy that could be identified. Follow up chest x-ray shows significant improvement with clearing of the infiltrates. Swallow study on 07/07/2016 showing some functional swallowing. Recommendation for the modified diet by Speech Pathology has been done with some mechanical soft, chopped with gravy, and thin liquids. Blood cultures have remained negative at discharge. Stool cultures did not show any C. diff. Shiga has been negative. Sputum cultures also grew of normal hood of alpha Streptococcus species and Neisseria species, and as I said, blood cultures have remained negative at discharge. HOSPITAL COURSE: This is a very pleasant gentleman 85-year-old gentleman who has been admitted on 07/06/2016 with shortness of breath, cough, and sputum production, just recently discharged from hospital. Prior to readmission, the patient has been treated with pneumonia and discharged to home on oral antibiotics and followup appointment as an outpatient. However, the patient became again short of breath with cough and sputum production as well as hypoxia with acute on chronic respiratory failure. For further details, please see history and physical of Dr. Clay Herbert. The patient has been admitted to Hospitalist Service. He is on chronic oxygen at 2 L of nasal cannula. The patient quit smoking many years ago, and the patient a couple of days prior to admission was deemed to be back at his baseline and transitioned to home. However, few days after that, he woke up from sleep and he became extremely short of breath and hypoxic. He has been found to have a left-sided infiltrate, white count on admission was 20,000, he has been started on broad-spectrum antibiotics. He subsequently had a speech eval that may raise question for possible aspirations, though no blanca aspiration has been appreciated. His diet has been modified, and due to his history of esophageal stricture, GI consult has been obtained as well. The patient has been continued on broad-spectrum antibiotics. He started to be weaned of oxygen nicely, and his antibiotics has been slowly discontinued. He started to work with the Discharge Summary [address] [address] NAME: ALEXANDER LARA : 28 STATUS : DIS IN PAT#: [id number] AGE: 85 ADM/REG DATE : 07/06/16 MR#: [id number] REPORT SERV DATE: 07/14/16 DICTATED BY: MADELINE OSUNA DATE: 07/13/16 REPORT STATUS : Draft TRANSCRIBED BY: VAMSI DATE: 07/13/16 Physical Therapy as well, and we discussed extensively with the patient. It was a strong recommendation for the patient to be discharged to inpatient rehab. However, the patient adamantly denied going to inpatient rehab and he and his daughter both prepared for the patient to return home with home health and home physical treatment. On 07/07/2016, the patient has been ready for discharge. MEDICATIONS AT DISCHARGE: Would include allopurinol 100 p.o. daily, Cardizem CD 120 p.o. daily, Flonase nasal spray one spray inhalation daily, Neurontin 100 at bedtime, Humibid DM 600 p.o. t.i.d., Levemir 20 units at bedtime, Isordil 20 p.o. t.i.d., Lopressor 75 b.i.d., Protonix 40 p.o. daily, Florastor one capsule p.o. b.i.d., Zocor 20 mg at bedtime, Spiriva HandiHaler one inhalation daily, Carafate 1 g p.o. before meals and at bedtime, albuterol nebulizer p.r.n., Symbicort two puffs inhalation b.i.d., iron over the counter, Lasix 40 p.o. daily, York one tablet p.o. b.i.d. p.r.n., Novolin 70/30 of 20 units subcu daily, and Augmentin 875 p.o. b.i.d. x3 days to complete a full course of 10 days of antibiotic treatment. That has been discussed extensively with the patient as well as the patient's daughter. All the questions have been answered in full. We will arrange primary care provider followup appointment with the patient's primary care provider, Dr. Juan Bowers, in one week after discharge with a BMP check. Pulmonary followup with Dr. Bibiana Wright, Pulmonary, in three to four weeks after discharge, and GI followup with Dr. Gabe Srinivasan in four weeks after discharge. We will arrange home health as well and home physical therapy. Again, that has been discussed extensively with the patient and the patient's daughter. All the questions have been answered in full. I have spent more than 30 minutes at discharging the patient, Giuseppe Jenkins, all of his medication reconciliation, discharge summary, discharge instruction, and written prescriptions as well. CF/MODL Madeline Osuna M.D. / [id number] CC: Deirdre Goodson FRANCES
--- NOTE | ~2016-07-06 | CN ---
Consultation Report [facility] [address] [place]. [address] NAME: ILDEFONSO CHIN : 28 STATUS : ADM IN PAT#: [id number] AGE: 85 ADM/REG DATE : 07/06/16 MR#: [id number] REPORT SERV DATE: 07/07/16 DICTATED BY: PANTERA DUMONT DATE: 07/07/16 REPORT STATUS : Draft TRANSCRIBED BY: MODL DATE: 07/07/16 CONSULTATION REPORT DATE OF CONSULTATION: 07/07/2016 CHIEF COMPLAINT: Shortness of breath and hypoxemia in a patient recently treated for pneumonia. HISTORY OF PRESENT ILLNESS: Mr. Ildefonso Chin is a pleasant 85-year-old white male with a past medical history significant for persistent pneumonia, diabetes mellitus, hypertension, and COPD who presents to [facility]'s Emergency Room with complaints of worsening shortness of breath of one to two days duration. It should be noted that Mr. Chin was hospitalized as recently as one to two days ago when he was treated for symptoms related to pneumonia and COPD. Mr. Chin has not had an opportunity to establish in our outpatient pulmonary clinic. He is on chronic oxygen at 2 liters. The patient quit smoking many years ago. Prior to this time, he smoked about four packs of cigarettes a day for a period of nine years. He largely denies symptomatology related to obstructive sleep apnea. He is on a pulmonary regimen of albuterol, Symbicort, and Spiriva. He has poor exercise tolerance. Again, Mr. Chin presented to [facility] approximately a week ago after failing outpatient treatment for what was perceived to be a community-acquired pneumonia. He did receive antibiotics, steroids, and breathing treatments with significant clinical response. He had improvement in his white count, procalcitonin, and chest x-ray. On Wednesday, the patient was deemed to be back to baseline and was transitioned to home. The patient states that Wednesday night he was awakened from sleep due to his poor pulmonary status. He persevered through Wednesday, but eventually called his daughter due to his worsening pulmonary status. She eventually called the emergency medical services who transported him to [facility]. Upon arrival, the patient was normotensive. He did have a temperature that was slightly elevated at 100.2. His oxygenation was 96%. The patient did undergo chest x-ray imaging, which demonstrated a new left-sided infiltrate. The patient's white count was 20,900. The patient was started on antibiotics. He subsequently had a swallow eval, which is suggestive of possible aspiration, though no blanca aspiration is appreciated. He has had a CT of the chest, which revealed severe emphysematous changes in the apices and a concerning area of new consolidation in the left lower lobe. For the aforementioned reasons, he has been referred to the Pulmonary Service for further assessment. Currently, Mr. Chin is already feeling better. He is on 5 liters of supplemental oxygen with good oxygenation status. He does have a cough that is producing thick sputum. He does periodically belch and regurgitate some food. He denies any pleuritic chest pain. He has had no recent episodes of hemoptysis. He has not had any overt aspiration episodes. Consultation Report [place] [id number] [facility] [place]. [address] NAME: ILDEFONSO CHIN : 28 STATUS : ADM IN [facility]#: [id number] AGE: 85 ADM/REG DATE : 07/06/16 MR#: [id number] REPORT SERV DATE: 07/07/16 DICTATED BY: PANTERA DUMONT DATE: 07/07/16 REPORT STATUS : Draft TRANSCRIBED BY: VAMSI DATE: 07/07/16 The patient does have known arrhythmias, status post pacemaker placement. He does have known hypertension and dyslipidemia. He currently denies any murmurs, angina, or palpitations. He denies any orthopnea or dependent edema. In regard to constitutional symptoms, the patient does have issues with regurgitation and dysphagia. He denies any nausea, vomiting, or dependent edema. PAST MEDICAL HISTORY: 1. Diabetes mellitus. 2. Peripheral neuropathy. 3. Gout. 4. Dyslipidemia. 5. Hypertension. 6. Congestive heart failure. 7. Arrhythmia, status post pacemaker placement. 8. Prostate cancer. 9. COPD with oxygen dependence. PAST SURGICAL HISTORY: 1. Prostatectomy. 2. Cholecystectomy. FAMILY HISTORY: The patient denies family history of lung disease. SOCIAL HISTORY: The patient is . He has one daughter who is adopted. She is very involved in his health care. 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 He is likely had excessive exposures to airborne dust and silica. TOBACCO/ALCOHOL: As previously mentioned, the patient quit smoking quite some time ago. Prior to that time, he smoked as much as four packs a day for a period of approximately nine years. He denies any recent alcohol or illicit drug use. MEDICATIONS: Include: 1. Albuterol. 2. Allopurinol 100 mg. 3. Symbicort. 4. Furosemide 40 mg. 5. Gabapentin 100 mg. 6. Hydrocodone 10/325. 7. Insulin. 8. Metoprolol 50 mg. 9. Simvastatin 20 mg. 10.Spiriva. ALLERGIES: THE PATIENT HAS KNOWN ALLERGY TO DIAZEPAM. Consultation Report [address] [place]. [address] NAME: ILDEFONSO CHIN : 28 STATUS : ADM IN PAT#: [id number] AGE: 85 ADM/REG DATE : 07/06/16 MR#: [id number] REPORT SERV DATE: 07/07/16 DICTATED BY: PANTEAR DUMONT DATE: 07/07/16 REPORT STATUS : Draft TRANSCRIBED BY: MODAgustin DATE: 07/07/16 REVIEW OF SYSTEMS: A complete review of systems was performed with pertinent positives and negatives contained within the body of the HPI. PHYSICAL EXAMINATION: VITAL SIGNS: Blood pressure is 142/67, heart rate is 80, T-max is 97.8, respiratory rate is 16, and SpO2 is 96% on 5 liters. GENERAL: The patient is a pleasant, well-nourished/well-developed male who is not currently exhibiting any signs of acute distress. Skin: Skin with appropriate texture and turgor. No rashes, lesions, or ulcers. Nails are clear without cyanosis or clubbing. HEENT: Head: Skull is normocephalic/atraumatic. Facies symmetric. No masses or lesions. Eyes: Sclera anicteric, conjunctiva pink without exudates. Extra ocular movements intact. Pupils are equal, round, reactive to light. Ears: Auricles and tragus without pain to palpation. Hearing is grossly intact. Nose: Bilateral nasal patency. Sinuses without tenderness upon palpation. Throat: Dentition. Lips, oral mucosa, tongue, palate, and pharynx pink and moist without lesions. Uvula rises equally on phonation. Tongue midline without deviation. NECK: Neck supple. Trachea midline. No cervical lymphadenopathy appreciated. THORAX/LUNGS: Diminished breath sounds throughout with scattered rhonchi. CARDIOVASCULAR: Regular rate and rhythm. No murmurs, rubs, or gallops. Anterior chest without thrills, heaves, or lifts. ABDOMEN: Soft. Non-distended, non-tender. Active bowel sounds in all four quadrants. No hepatosplenomegaly noted. PERIPHERAL VASCULAR: No edema. No varicosities, stasis changes, open sores, ulcerations, or phlebitis. 2+ pulses in radial and dorsalis pedis. MUSCULOSKELETAL: Full AROM and PROM in all joints. No evidence of erythema, deformity, or crepitus. NEUROLOGIC: CN II - XII grossly intact. Good muscle bulk and tone bilaterally. Strength 5/5 throughout. PSYCHIATRIC: Patient demonstrates good judgment and insight. Pt is A&O x 3. ACCESSORY DATA: White blood cell count is 10,300. Procalcitonin is 5.01. CT of the chest reveals severe emphysematous changes in the apices. There is an area of dense consolidation, which is concerning in the left lower lobe. Swallowing study reveals functional swallowing, however, there is pooling and vallecular residue appreciated. IMPRESSION: 1. Acute on chronic hypoxemic respiratory failure. 2. Recurrent pneumonia - suspect aspiration or reflux component. 3. Chronic obstructive pulmonary disease. 4. Dysphagia with history of esophageal stricture. PLAN: Consultation Report [address] [address] NAME: ILDEFONSO CHIN : 28 STATUS : ADM IN [facility]#: [id number] AGE: 85 ADM/REG DATE : 07/06/16 MR#: [id number] REPORT SERV DATE: 07/07/16 DICTATED BY: PANTERA DUMONT DATE: 07/07/16 REPORT STATUS : Draft TRANSCRIBED BY: VAMSI DATE: 07/07/16 1. The patient has been appropriately placed oxygen with already improvement in his overall pulmonary status. 2. In regard to the patient's possible new infiltrate, he has been placed on aggressive antibiotic coverage. It may be reasonable ask our colleagues in Gastroenterology to discuss the possibility of reflux as a contributing factor in the patient's recurrent pneumonia. 3. The aforementioned impression and plan has been discussed with Dr. Cesar who will follow further recommendations. We thank you for this consult and look forward to participating in the care of Mr. Chin. RADHA/VAMSI Pantera Dumont PA-C / [id number] CC: Deirdre Goodson III, M.D.
[2016-07-06 01:51] LABS: BASOPHILS 0.1 %; BASOPHILS ABSOLUTE 0.02 10/3/uL (0.0-0.16); EOSINOPHILS 1.1 %; EOSINOPHILS ABSOLUTE 0.24 10/3/uL (0.0-0.53); IMMATURE GRANULOCYTES 0.9 %; LYMPHOCYTES 3.6 %; LYMPHOCYTES ABSOLUTE 0.76 10/3/uL (0.67-4.30); MEAN CORPUS HGB CONC 32.4 g/dL (32.0-36.0); MEAN CORPUSCULAR HEMOGLOB 30.7 pg (26.0-34.0); MEAN PLATELET VOLUME 10.3 fL (9.2-13.0); MONOCYTES 3.4 %; MONOCYTES ABSOLUTE 0.72 10/3/uL (0.21-1.20); NEUTROPHILS 90.9 %; NEUTROPHILS ABSOLUTE 18.97 10/3/uL (2.02-8.40); RBC DISTRIBUTION WIDTH 14.4 % (12.0-16.0)
[2016-07-06 01:58] LABS: ER CBC TAT 0 Hrs 11 Mins; HEMOGLOBIN 13.3 g/dL (13.6-17.8); IMMATURE GRANULOCYTES ABSOLUTE 0.19 10/3/uL (0.0-0.11); INTERNATIONAL NORMAL RATI 1.1 UNITS (-); MANUAL DIFF NO %; MEAN CORPUSCULAR VOLUME 94.7 fL (80-100); PLATELET COUNT 211 10/3/uL (150-400); PROTIME (NOT ORD) 13.9 SEC (12.0-14.5); RED CELL COUNT 4.33 10/6/uL (4.7-6.1); WHITE BLOOD CELLS 20.9 10/3/uL (4.5-10.5)
[2016-07-06 02:05] LABS: CALCIUM, SERUM 8.6 MG/DL (8.5-10.4); CHLORIDE, SERUM 103 MMOL/L (96-112); CO2 (CARBON DIOXIDE) 28 MMOL/L (24-34); CREATININE 1.23 MG/DL (0.70-1.30); GFR AFRICAN AMERICAN 61 ML/MIN (>=60); GFR NON AFRICAN AMERICAN 53 ML/MIN (>=60); POTASSIUM, SERUM 4.6 MMOL/L (3.5-5.3); SGOT(AST) 22 U/L (5-40); SGPT(ALT) 64 U/L (5-65); SODIUM, SERUM 140 MMOL/L (135-148); TOTAL BILIRUBIN 0.4 MG/DL (0-1.2); TOTAL PROTEIN 6.4 G/DL (6.0-8.5); TROPONIN I 0.02 NG/ML (<0.05)
[2016-07-06 02:07] LABS: A/G RATIO 0.8 (0.7-1.9); ALBUMIN 2.9 G/DL (3.5-5.0); ALKALINE PHOSPHATASE 68 U/L (45-117); BUN (BLOOD UREA NITROGEN) 43 MG/DL (6-23); GLOBULIN 3.5 G/DL (2.5-4.1); GLUCOSE, SERUM 144 MG/DL (60-99)
[2016-07-06 02:08] LABS: LACTATE 1.4 MMOL/L (0.3-2.4)
[~2016-07-06 02:13] MED LIST: ALBUTEROL0.083 % INH; CARD120 PO; FLONASE NAS; INSNOV7030 SC; IRON OTC PO; ISORDIL20 PO; L40 PO; LEVAQUIN750 MG PO; LEVEMIR SC; NEUR100 PO; NORCO1 TAB PO; PROAIR HFA INH; RESTORIL30 MG PO; SPIRIVA; SYMBICORT 160/41 INH INH; TOPXL50 PO; Z100 PO; ZOCOR20 PO
[2016-07-06 02:17] LABS: BAND NEUTROPHILS 14 %; EOSINOPHILS 1 %; EOSINOPHILS ABSOLUTE (CALC) 0.21 10/3/uL (0.0-0.53); ER DIFF TAT 0 Hrs 30 Mins; IMMATURE GRANS ABSOLUTE (CALC) 0.42 10/3/uL (0.0-0.11); LYMPHOCYTES 5 %; LYMPHOCYTES ABSOLUTE (CALC) 1.05 10/3/uL (0.67-4.30); METAMYELOCYTES 2 %; MONOCYTES 2 %; MONOCYTES ABSOLUTE (CALC) 0.42 10/3/uL (0.21-1.20); NEUTROPHILS ABSOLUTE (CALC) 18.81 10/3/uL (2.02-8.40); PLATELET ESTIMATE ADQ (ADEQUATE); RBC MORPHOLOGY NORM (NORMAL); SEGMENTED NEUTROPHIL (0) 76 %; TOTAL NUCLEATED CELLS 100
[2016-07-06 02:31] LABS: PROCALCITONIN 0.58 ng/mL (<0.5)
[2016-07-06 04:56] LABS: ASCORBIC ACID (UR NOT ORDER) NEG (NEG); BILIRUBIN, URINE NEGATIVE (NEG); ER URINALYSIS TAT 0 Hrs 00 Mins; KETONE, URINE NEGATIVE (NEG); LEUKOCYTE ESTERASE(NOT OR NEG (NEG); NITRITE (URINE) NEG (NEG); WBC (NOT ORDERED) (RFLEX) 5 (0-5)
[2016-07-07 05:21] LABS: BASOPHILS 0 %; EOSINOPHILS 0 %; HEMATOCRIT 32.3 % (40.0-51.0); HEMOGLOBIN 10.9 g/dL (13.6-17.8); IMMATURE GRANULOCYTES 0.7 %; IMMATURE GRANULOCYTES ABSOLUTE 0.07 10/3/uL (0.0-0.11); LYMPHOCYTES 6.3 %; LYMPHOCYTES ABSOLUTE 0.65 10/3/uL (0.67-4.30); MEAN CORPUS HGB CONC 33.7 g/dL (32.0-36.0); MEAN CORPUSCULAR VOLUME 94.7 fL (80-100); MEAN PLATELET VOLUME 10.1 fL (9.2-13.0); MONOCYTES 1.1 %; MONOCYTES ABSOLUTE 0.11 10/3/uL (0.21-1.20); NEUTROPHILS 91.9 %; NEUTROPHILS ABSOLUTE 9.47 10/3/uL (2.02-8.40); PLATELET COUNT 169 10/3/uL (150-400); RBC DISTRIBUTION WIDTH 14.1 % (12.0-16.0); RED CELL COUNT 3.41 10/6/uL (4.7-6.1); WHITE BLOOD CELLS 10.3 10/3/uL (4.5-10.5)
[2016-07-07 05:22] LABS: MANUAL DIFF NO %
[2016-07-07 05:38] LABS: BUN (BLOOD UREA NITROGEN) 43 MG/DL (6-23); CALCIUM, SERUM 8.3 MG/DL (8.5-10.4); CHLORIDE, SERUM 102 MMOL/L (96-112); CO2 (CARBON DIOXIDE) 27 MMOL/L (24-34); CREATININE 1.11 MG/DL (0.70-1.30); GFR AFRICAN AMERICAN 69 ML/MIN (>=60); GFR NON AFRICAN AMERICAN 60 ML/MIN (>=60); GLUCOSE, SERUM 255 MG/DL (60-99); POTASSIUM, SERUM 4.3 MMOL/L (3.5-5.3); SODIUM, SERUM 137 MMOL/L (135-148)
[2016-07-07 06:31] LABS: PROCALCITONIN 5.01 ng/mL (<0.5)
[2016-07-08 06:04] LABS: BASOPHILS 0 %; EOSINOPHILS 0 %; HEMATOCRIT 31.6 % (40.0-51.0); HEMOGLOBIN 10.8 g/dL (13.6-17.8); IMMATURE GRANULOCYTES 0.7 %; IMMATURE GRANULOCYTES ABSOLUTE 0.09 10/3/uL (0.0-0.11); LYMPHOCYTES 6.5 %; LYMPHOCYTES ABSOLUTE 0.86 10/3/uL (0.67-4.30); MANUAL DIFF NO %; MEAN CORPUS HGB CONC 34.2 g/dL (32.0-36.0); MEAN CORPUSCULAR HEMOGLOB 31.9 pg (26.0-34.0); MEAN CORPUSCULAR VOLUME 93.2 fL (80-100); MEAN PLATELET VOLUME 9.2 fL (9.2-13.0); MONOCYTES 4.7 %; MONOCYTES ABSOLUTE 0.62 10/3/uL (0.21-1.20); NEUTROPHILS 88.1 %; NEUTROPHILS ABSOLUTE 11.58 10/3/uL (2.02-8.40); PLATELET COUNT 158 10/3/uL (150-400); RED CELL COUNT 3.39 10/6/uL (4.7-6.1); WHITE BLOOD CELLS 13.2 10/3/uL (4.5-10.5)
[2016-07-08 06:18] LABS: CALCIUM, SERUM 8.3 MG/DL (8.5-10.4); CHLORIDE, SERUM 102 MMOL/L (96-112); CO2 (CARBON DIOXIDE) 28 MMOL/L (24-34); CREATININE 0.92 MG/DL (0.70-1.30); GFR AFRICAN AMERICAN 87 ML/MIN (>=60); GFR NON AFRICAN AMERICAN 75 ML/MIN (>=60); POTASSIUM, SERUM 3.9 MMOL/L (3.5-5.3); SODIUM, SERUM 139 MMOL/L (135-148)
[2016-07-08 06:20] LABS: BUN (BLOOD UREA NITROGEN) 35 MG/DL (6-23); GLUCOSE, SERUM 172 MG/DL (60-99)
[2016-07-08 06:29] LABS: INTERNATIONAL NORMAL RATI 1.1 UNITS (-); PROTIME (NOT ORD) 14.2 SEC (12.0-14.5)
[2016-07-08 06:30] LABS: PARTIAL THROMBO TIME 51.3 SEC (22.5-37.2)
[2016-07-08 09:53] LABS: FOLATE 12.2 NG/ML (>5.2)
[2016-07-09 05:11] LABS: BASOPHILS 0 %; EOSINOPHILS 0 %; HEMATOCRIT 32.7 % (40.0-51.0); IMMATURE GRANULOCYTES 0.5 %; IMMATURE GRANULOCYTES ABSOLUTE 0.04 10/3/uL (0.0-0.11); LYMPHOCYTES 8.3 %; LYMPHOCYTES ABSOLUTE 0.73 10/3/uL (0.67-4.30); MEAN CORPUS HGB CONC 33.6 g/dL (32.0-36.0); MEAN CORPUSCULAR VOLUME 95.1 fL (80-100); MEAN PLATELET VOLUME 9.7 fL (9.2-13.0); MONOCYTES 9.8 %; MONOCYTES ABSOLUTE 0.87 10/3/uL (0.21-1.20); NEUTROPHILS 81.4 %; PLATELET COUNT 177 10/3/uL (150-400); RED CELL COUNT 3.44 10/6/uL (4.7-6.1); WHITE BLOOD CELLS 8.8 10/3/uL (4.5-10.5)
[2016-07-09 05:12] LABS: MANUAL DIFF NO %
[2016-07-09 05:17] LABS: CHLORIDE, SERUM 101 MMOL/L (96-112); CO2 (CARBON DIOXIDE) 27 MMOL/L (24-34); GFR AFRICAN AMERICAN 89 ML/MIN (>=60); GFR NON AFRICAN AMERICAN 77 ML/MIN (>=60); POTASSIUM, SERUM 3.9 MMOL/L (3.5-5.3); SODIUM, SERUM 138 MMOL/L (135-148)
[2016-07-09 05:20] LABS: BUN (BLOOD UREA NITROGEN) 31 MG/DL (6-23); GLUCOSE, SERUM 217 MG/DL (60-99)
[2016-07-10 06:34] LABS: CALCIUM, SERUM 8.4 MG/DL (8.5-10.4); CHLORIDE, SERUM 101 MMOL/L (96-112); CO2 (CARBON DIOXIDE) 30 MMOL/L (24-34); CREATININE 0.75 MG/DL (0.70-1.30); GFR AFRICAN AMERICAN 96 ML/MIN (>=60); GFR NON AFRICAN AMERICAN 83 ML/MIN (>=60); POTASSIUM, SERUM 3.5 MMOL/L (3.5-5.3); SODIUM, SERUM 141 MMOL/L (135-148)
[2016-07-10 06:37] LABS: BUN (BLOOD UREA NITROGEN) 17 MG/DL (6-23); GLUCOSE, SERUM 85 MG/DL (60-99)
[2016-07-10 06:38] LABS: BASOPHILS 0.1 %; BASOPHILS ABSOLUTE 0.01 10/3/uL (0.0-0.16); EOSINOPHILS 0 %; HEMATOCRIT 35.7 % (40.0-51.0); HEMOGLOBIN 11.9 g/dL (13.6-17.8); IMMATURE GRANULOCYTES 0.7 %; IMMATURE GRANULOCYTES ABSOLUTE 0.05 10/3/uL (0.0-0.11); LYMPHOCYTES 14.1 %; LYMPHOCYTES ABSOLUTE 0.98 10/3/uL (0.67-4.30); MANUAL DIFF NO %; MEAN CORPUS HGB CONC 33.3 g/dL (32.0-36.0); MEAN CORPUSCULAR HEMOGLOB 31.2 pg (26.0-34.0); MEAN CORPUSCULAR VOLUME 93.5 fL (80-100); MEAN PLATELET VOLUME 9.5 fL (9.2-13.0); MONOCYTES 11.4 %; MONOCYTES ABSOLUTE 0.79 10/3/uL (0.21-1.20); NEUTROPHILS 73.7 %; NEUTROPHILS ABSOLUTE 5.11 10/3/uL (2.02-8.40); PLATELET COUNT 183 10/3/uL (150-400); RED CELL COUNT 3.82 10/6/uL (4.7-6.1); WHITE BLOOD CELLS 6.9 10/3/uL (4.5-10.5)
[2016-07-10 09:01] LABS: PROCALCITONIN 0.62 ng/mL (<0.5)
[2016-07-11 07:07] LABS: BASOPHILS 0.1 %; BASOPHILS ABSOLUTE 0.01 10/3/uL (0.0-0.16); EOSINOPHILS 0 %; HEMOGLOBIN 12.4 g/dL (13.6-17.8); IMMATURE GRANULOCYTES 0.8 %; IMMATURE GRANULOCYTES ABSOLUTE 0.07 10/3/uL (0.0-0.11); LYMPHOCYTES 10.4 %; LYMPHOCYTES ABSOLUTE 0.87 10/3/uL (0.67-4.30); MEAN CORPUS HGB CONC 33.5 g/dL (32.0-36.0); MEAN CORPUSCULAR HEMOGLOB 31.5 pg (26.0-34.0); MEAN CORPUSCULAR VOLUME 93.9 fL (80-100); MEAN PLATELET VOLUME 9.3 fL (9.2-13.0); MONOCYTES 10.4 %; MONOCYTES ABSOLUTE 0.87 10/3/uL (0.21-1.20); NEUTROPHILS 78.3 %; NEUTROPHILS ABSOLUTE 6.55 10/3/uL (2.02-8.40); PLATELET COUNT 175 10/3/uL (150-400); RBC DISTRIBUTION WIDTH 13.8 % (12.0-16.0); RED CELL COUNT 3.94 10/6/uL (4.7-6.1); WHITE BLOOD CELLS 8.4 10/3/uL (4.5-10.5)
[2016-07-11 07:11] LABS: MANUAL DIFF NO %
[2016-07-11 07:18] LABS: BUN (BLOOD UREA NITROGEN) 17 MG/DL (6-23); CALCIUM, SERUM 8.6 MG/DL (8.5-10.4); CHLORIDE, SERUM 100 MMOL/L (96-112); CO2 (CARBON DIOXIDE) 29 MMOL/L (24-34); CREATININE 0.87 MG/DL (0.70-1.30); GFR AFRICAN AMERICAN 91 ML/MIN (>=60); GFR NON AFRICAN AMERICAN 78 ML/MIN (>=60); GLUCOSE, SERUM 163 MG/DL (60-99); POTASSIUM, SERUM 4.1 MMOL/L (3.5-5.3); SODIUM, SERUM 139 MMOL/L (135-148)
[2016-07-12 06:50] LABS: BASOPHILS 0.1 %; BASOPHILS ABSOLUTE 0.01 10/3/uL (0.0-0.16); EOSINOPHILS 1.2 %; EOSINOPHILS ABSOLUTE 0.11 10/3/uL (0.0-0.53); HEMATOCRIT 35.6 % (40.0-51.0); HEMOGLOBIN 11.8 g/dL (13.6-17.8); IMMATURE GRANULOCYTES 0.9 %; IMMATURE GRANULOCYTES ABSOLUTE 0.08 10/3/uL (0.0-0.11); LYMPHOCYTES 10.1 %; LYMPHOCYTES ABSOLUTE 0.93 10/3/uL (0.67-4.30); MEAN CORPUS HGB CONC 33.1 g/dL (32.0-36.0); MEAN CORPUSCULAR HEMOGLOB 30.9 pg (26.0-34.0); MEAN CORPUSCULAR VOLUME 93.2 fL (80-100); MEAN PLATELET VOLUME 9.3 fL (9.2-13.0); MONOCYTES 9.5 %; MONOCYTES ABSOLUTE 0.88 10/3/uL (0.21-1.20); NEUTROPHILS 78.2 %; NEUTROPHILS ABSOLUTE 7.21 10/3/uL (2.02-8.40); PLATELET COUNT 171 10/3/uL (150-400); RBC DISTRIBUTION WIDTH 14.6 % (12.0-16.0); RED CELL COUNT 3.82 10/6/uL (4.7-6.1); WHITE BLOOD CELLS 9.2 10/3/uL (4.5-10.5)
[2016-07-12 06:51] LABS: MANUAL DIFF NO %
[2016-07-12 07:03] LABS: CALCIUM, SERUM 8.5 MG/DL (8.5-10.4); CHLORIDE, SERUM 100 MMOL/L (96-112); CO2 (CARBON DIOXIDE) 33 MMOL/L (24-34); CREATININE 1.36 MG/DL (0.70-1.30); GFR AFRICAN AMERICAN 54 ML/MIN (>=60); GFR NON AFRICAN AMERICAN 47 ML/MIN (>=60); GLUCOSE, SERUM 162 MG/DL (60-99); POTASSIUM, SERUM 4.1 MMOL/L (3.5-5.3); SODIUM, SERUM 140 MMOL/L (135-148)
[2016-07-12 07:05] LABS: BUN (BLOOD UREA NITROGEN) 29 MG/DL (6-23)
[2016-07-13 04:47] LABS: BASOPHILS 0.1 %; BASOPHILS ABSOLUTE 0.01 10/3/uL (0.0-0.16); EOSINOPHILS 2.4 %; EOSINOPHILS ABSOLUTE 0.17 10/3/uL (0.0-0.53); HEMATOCRIT 35.1 % (40.0-51.0); HEMOGLOBIN 11.5 g/dL (13.6-17.8); IMMATURE GRANULOCYTES 0.7 %; IMMATURE GRANULOCYTES ABSOLUTE 0.05 10/3/uL (0.0-0.11); LYMPHOCYTES 16.2 %; LYMPHOCYTES ABSOLUTE 1.14 10/3/uL (0.67-4.30); MEAN CORPUS HGB CONC 32.8 g/dL (32.0-36.0); MEAN CORPUSCULAR HEMOGLOB 30.6 pg (26.0-34.0); MEAN CORPUSCULAR VOLUME 93.4 fL (80-100); MEAN PLATELET VOLUME 9.5 fL (9.2-13.0); NEUTROPHILS 70.6 %; NEUTROPHILS ABSOLUTE 4.96 10/3/uL (2.02-8.40); PLATELET COUNT 157 10/3/uL (150-400); RBC DISTRIBUTION WIDTH 14.7 % (12.0-16.0); RED CELL COUNT 3.76 10/6/uL (4.7-6.1)
[2016-07-13 04:52] LABS: MANUAL DIFF NO %
[2016-07-13 05:02] LABS: BUN (BLOOD UREA NITROGEN) 31 MG/DL (6-23); CALCIUM, SERUM 8.7 MG/DL (8.5-10.4); CHLORIDE, SERUM 100 MMOL/L (96-112); CO2 (CARBON DIOXIDE) 31 MMOL/L (24-34); CREATININE 1.42 MG/DL (0.70-1.30); GFR AFRICAN AMERICAN 51 ML/MIN (>=60); GFR NON AFRICAN AMERICAN 44 ML/MIN (>=60); SODIUM, SERUM 140 MMOL/L (135-148)
[2016-07-13 05:05] LABS: GLUCOSE, SERUM 105 MG/DL (60-99)
[2016-07-13] MEDS ORDERED: SUCR PO (10:18)
[2016-07-13] MEDS ORDERED: FLORASTOR250 MG PO (10:18)
[2016-07-13] MEDS ORDERED: PROTONIX PO (10:19)
[2016-07-13] MEDS ORDERED: AUG875 PO (10:19)
[2016-07-13] MEDS ORDERED: MUCINEX600 MG PO (10:20)
[2016-07-13] MEDS ORDERED: CARDCD120 PO (10:20)
== END 2016-07-13 11:31 | disposition home health service (06) | DRG 871 ==
LOC: ER 02:13 → 1SO 03:23 → 5NO 06:21
PROVIDERS: Internal Medicine; Internal Medicine Gastroenterology; Specialist
PROC: 0D718ZZ Dilation of Upper Esophagus, Via Natural or Artificial Opening Endoscopic (ICD-10-PCS; 2016-07-08)
PROC: 0DB98ZX Excision of Duodenum, Via Natural or Artificial Opening Endoscopic, Diagnostic (ICD-10-PCS; principal; 2016-07-08 14:29)
PROC: 0DB68ZX Excision of Stomach, Via Natural or Artificial Opening Endoscopic, Diagnostic (ICD-10-PCS; 2016-07-08 14:29)
DX: A41.9 Sepsis, unspecified organism (principal); J96.21 Acute and chronic respiratory failure with hypoxia; J18.9 Pneumonia, unspecified organism; J44.1 Chronic obstructive pulmonary disease with (acute) exacerbation; D69.6 Thrombocytopenia, unspecified; K22.2 Esophageal obstruction; E11.9 Type 2 diabetes mellitus without complications; R13.10 Dysphagia, unspecified; R65.20 Severe sepsis without septic shock; I10 Essential (primary) hypertension; K21.0 Gastro-esophageal reflux disease with esophagitis; K44.9 Diaphragmatic hernia without obstruction or gangrene; K29.80 Duodenitis without bleeding; Z90.49 Acquired absence of other specified parts of digestive tract; Z79.4 Long term (current) use of insulin
CPT/HCPCS: 36600; 71010; 71020; 71250; 74230; 80048; 80053; 80202; 81001; 82607; 82746; 82805; 82962; 83036; 83605; 83735; 83880; 84145; 84484; 85025; 85610; 85730; 87040; 87045; 87046; 87046-59; 87070; 87205; 87328; 87329; 87449; 87493; 87493-59; 87899; 87899-59; 88305; 88342; 89055; 92611-GN; 94640; 96365; 97116-GP; 97162-GP; 99291; A9270-GY; G8978-CK-GP; G8979-CI-GP; J0360; J0456; J0692; J2543; J2920; J3370